=== PATIENT | female | born 1955 | race African-American/Black ===

== ENCOUNTER 2018-05-03 15:03 | Emergency (ER) | payer MEDICAID, OTHER ==
[~2018-05-03] VITALS: Ht 167.6 cm; Wt 83.9 kg
[2018-05-03 15:13] VITALS: BP 160/103
--- NOTE | 2018-05-03 15:41 | Emergency Room Report ---
History of Present Illness General Chief Complaint: Back Injury Source: Patient Present Illness HPI 63-year-old female presents to the emergency department complaining of localized 10 out of 10 in severity in the low back/sacral area since yesterday. Patient status post mechanical trip and fall backwards where she landed on her tailbone and someone also landed on top of her. Patient denies hitting her head she denies loss of consciousness she denies neck pain. Patient reports constant ache with intermittent sharp shooting pains. Patient states pain is exacerbated primarily with standing up straight and weightbearing. Patient also states that she's been having a difficult time finding a comfortable position. She states that she took Vicodin at 10 AM with no relief. She currently is utilizing a lidocaine patch. Denies recent spinal procedures or hx of cancer. Denies numbness tingling or loss of sensation or gross motor movements of the extremities, incontinence of bowel or bladder. Denies CP, Palpitations, LOC, AMS, dizziness, Changes in Vision, weakness or a sudden severe headache. Allergies: Coded Allergies: No Known Allergies (Unverified , 05/03/18) Patient History Past Medical History: see triage record Past Surgical History: none Pertinent Family History: none Reviewed Nursing Documentation: PMH: Agreed; PSxH: Agreed Nursing Documentation-PMH Past Medical History: No Stated History Review of Systems All Other Systems: negative except mentioned in HPI Physical Exam Vital Signs Date Time Temp Pulse Resp B/P (MAP) Pulse Ox O2 Delivery O2 Flow Rate FiO2 05/03/18 15:13 98.3 86 18 160/103 97 Room Air 98.2 Sp02 EP Interpretation: reviewed, normal General Appearance: no apparent distress, alert, GCS 15, non-toxic Head: normocephalic, atraumatic ENT: hearing grossly normal, normal voice Neck: full range of motion Respiratory: lungs clear, normal breath sounds, speaking full sentences Cardiovascular #1: regular rate, rhythm Musculoskeletal: back normal, gait/station normal, normal range of motion, tender - mild paraspinal sacral ttp, able to perform SLR bilaterally without exacerbation. Neurologic: alert, oriented x3, responsive, motor strength/tone normal, sensory intact, normal gait, speech normal, other, grossly normal Psychiatric: judgement/insight normal Skin: normal color, no rash, warm/dry, well hydrated Medical Decision Making PA Attestation Dr. De Jesus is my supervising Physician whom patient management has been discussed with. Diagnostic Impression: Primary Impression: Sacral contusion Qualified Codes: S30.0XXA - Contusion of lower back and pelvis, initial encounter Additional Impression: Acute low back pain Qualified Codes: M54.5 - Low back pain ER Course 63-year-old female presents to the emergency department complaining of localized 10 out of 10 in severity in the low back/sacral area since yesterday. Patient status post mechanical trip and fall backwards where she landed on her tailbone and someone also landed on top of her. Patient denies hitting her head she denies loss of consciousness she denies neck pain. Patient reports constant ache with intermittent sharp shooting pains. Patient states pain is exacerbated primarily with standing up straight and weightbearing. Patient also states that she's been having a difficult time finding a comfortable position. She states that she took Vicodin at 10 AM with no relief. She currently is utilizing a lidocaine patch. Denies recent spinal procedures or hx of cancer. Denies numbness tingling or loss of sensation or gross motor movements of the extremities, incontinence of bowel or bladder. Denies CP, Palpitations, LOC, AMS, dizziness, Changes in Vision, weakness or a sudden severe headache. Ddx considered but are not limited to Fracture, dislocation, contusion, Sprain/ Strain/Spasm, Epidural abscess, Neoplastic mets just to name a few. Vital signs: are WNL, pt. is afebrile H&PE are most consistent with musculoskeletal injury will perform imaging to r/ o fractures/dislocations. ORDERS: - X-ray Sacrum/ coccyx - negative for fx, Dislocation, or significant soft tissue injury, per preliminary read in ED, and signed by LAILA Gonzalez, my supervising physician has reviewed, and agrees with my interpretation. ED INTERVENTIONS: - Toradol Im -Soma PO DISCHARGE: At this time pt. is stable for d/c to home. Will provide printed patient care instructions, and any necessary prescriptions. Care plan and follow up instructions have been discussed with the patient prior to discharge. Other X-Ray Diagnostic Results Other X-Ray Diagnostic Results : X-Ray ordered: Xray Sacrum / coccyx # of Views/Limited Vs Complete: 3 View Indication: Pain EP Interpretation: Yes LAILA Xray: Interpretation reviewed, by supervising MD, and agrees with findings. Interpretation: no dislocation, no soft tissue swelling, no fractures Impression: No acute disease Electronically Signed by: Verito Gonzalez PA-C Last Vital Signs Date Time Temp Pulse Resp B/P (MAP) Pulse Ox O2 Delivery O2 Flow Rate FiO2 05/03/18 15:13 98.3 86 18 160/103 97 Room Air 98.2 Disposition: HOME, SELF-CARE Condition: Stable Scripts Ibuprofen* (MOTRIN*) 600 Mg Tablet 600 MG ORAL THREE TIMES A DAY, #20 TAB 0 Refills Prov: Verito Gonzalez 05/03/18 Lidocaine (Lidoderm) 1 Each Adh..patch 1 PATCH TOPIC DAILY, #30 PATCH 0 Refills Patch(es) may remain in place for up to 12 hours in any 24-hour period. Prov: Verito Gonzalez 05/03/18 Tramadol Hcl* (ULTRAM*) 50 Mg Tablet 50 MG ORAL Q6H PRN for For Pain, #15 TAB 0 Refills Prov: Verito Gonzalez 05/03/18 Patient Instructions: Back Pain, Adult Additional Instructions: Take medications as directed. Follow up with a Primary Care Provider in 3-5 days, even if your symptoms have resolved. --Please review list of primary care clinics, if you do not already have a primary care provider Return sooner to ED if new symptoms occur, or current symptoms become worse. Do not drink alcohol, drive, or operate heavy machinery while taking Tramadol as this may cause drowsiness. - Please note that this Emergency Department Report was dictated using [employer] technology software, occasionally this can lead to erroneous entry secondary to interpretation by the dictation equipment. Verito Gonzalez May 03, 2018 15:41
[2018-05-03] MEDS ORDERED: Ketorolac 60mg Inj IM ONE (15:45)
[2018-05-03] MEDS ORDERED: LIDODERM700 M1 TOPIC (17:24)
[2018-05-03] MEDS ORDERED: IBUPROFEN600 MG ORAL (17:24)
[2018-05-03] MEDS ORDERED: TRAMADOL HCL50 MG ORAL (17:24)
[2018-05-03 17:36] VITALS: BP 175/100
--- NOTE | 2018-05-04 11:04 | Diagnostic Imaging Report ---
Indication: Pain Technique: 3 views of the sacrum and coccyx Comparison: none Findings: Large calcified mass is seen in the pelvis to the left of midline. This obscures the left side of the sacrum on the frontal views. No definite acute fractures. No definite osteolytic or osteoblastic process. There are degenerative changes of the lumbosacral junction Impression: Somewhat limited exam, as described No acute bony trauma Calcified pelvic mass, appearance consistent with old degenerated uterine fibroids Degenerative changes of the lumbosacral junction
== END 2018-05-03 17:36 | disposition home or self-care (01) ==
LOC: EMR 15:54
DX: S30.0XXA Contusion of lower back and pelvis, initial encounter (principal); W01.0XXA Fall on same level from slipping, tripping and stumbling without subsequent striking against object, initial encounter; Y92.9 Unspecified place or not applicable
CPT/HCPCS: 72220; 96372; 99284

== ENCOUNTER 2019-11-28 17:10 | Emergency (ER) | payer OTHER ==
[~2019-11-28] VITALS: Ht 167.6 cm; Wt 68.0 kg
[~2019-11-28 17:10] MED LIST: IBUPROFEN600 MG ORAL; LIDODERM700 M1 TOPIC; TRAMADOL HCL50 MG ORAL
--- NOTE | 2019-11-28 17:40 | NUR ---
ED Nurse Note: Pt walked into ED w/ c/o SOB for past month. Pt states it has gotten worse over the past few days. Pt lungs bilateral clear to auscultation. No wheezing. Pt is 100% RA. Pt set up on monitor.
--- NOTE | 2019-11-28 17:45 | Emergency Room Report ---
History of Present Illness General Chief Complaint: Dyspnea/Respdistress Source: Patient Present Illness HPI 64-year-old female history of smoking for greater than 20 years presents with shortness of breath, wheezing x2 months gradually worsening, no fevers no chills , no cough no congestion, no known aggravating relieving factors severity is moderate, constant patient does not take albuterol at home she takes no medications she denies any chest pain Allergies: Coded Allergies: No Known Allergies (Unverified , 05/03/18) Patient History Past Medical History: see triage record Reviewed Nursing Documentation: PMH: Agreed; PSxH: Agreed Nursing Documentation-PMH Past Medical History: No Stated History Review of Systems All Other Systems: negative except mentioned in HPI Physical Exam Vital Signs Date Time Temp Pulse Resp B/P (MAP) Pulse Ox O2 Delivery O2 Flow Rate FiO2 11/28/19 17:27 97.9 111 20 147/85 (105) 100 Room Air Sp02 EP Interpretation: reviewed, normal General Appearance: well appearing, no apparent distress, alert Head: normocephalic, atraumatic Eyes: bilateral eye PERRL, bilateral eye EOMI ENT: uvula midline, moist mucus membranes Neck: supple, thyroid normal, supple/symm/no masses Respiratory: no respiratory distress, no retraction, no accessory muscle use, decreased breath sounds, wheezing - Mild Cardiovascular #1: normal peripheral pulses, regular rate, rhythm, no edema, no gallop, no murmur Gastrointestinal: non tender, soft, no guarding, no rebound Musculoskeletal: normal inspection Neurologic: alert, oriented x3 Psychiatric: mood/affect normal Skin: no rash, warm/dry Medical Decision Making Diagnostic Impression: Primary Impression: COPD exacerbation ER Course 64-year-old female presents with cough, congestion, shortness of breath x2 months, patient was a former smoker Patient improved significantly with breathing treatments, Patient was able to walk further today Counseled patient to follow-up with cardiology as well as pulmonology Disposition home with return precautions Laboratory Tests Test 11/28/19 17:37 White Blood Count 4.1 K/UL (4.8-10.8) L Red Blood Count 4.53 M/UL (4.20-5.40) Hemoglobin 12.1 G/DL (12.0-16.0) Hematocrit 37.3 % (37.0-47.0) Mean Corpuscular Volume 82 FL (80-99) Mean Corpuscular Hemoglobin 26.8 PG (27.0-31.0) L Mean Corpuscular Hemoglobin Concent 32.5 G/DL (32.0-36.0) Red Cell Distribution Width 11.1 % (11.6-14.8) L Platelet Count 188 K/UL (150-450) Mean Platelet Volume 6.4 FL (6.5-10.1) L Neutrophils (%) (Auto) 38.4 % (45.0-75.0) L Lymphocytes (%) (Auto) 47.4 % (20.0-45.0) H Monocytes (%) (Auto) 11.6 % (1.0-10.0) H Eosinophils (%) (Auto) 0.0 % (0.0-3.0) Basophils (%) (Auto) 2.6 % (0.0-2.0) H Prothrombin Time 10.0 SEC (9.30-11.50) Prothrombin Time INR 0.9 (0.9-1.1) PTT 27 SEC (23-33) Sodium Level 143 MMOL/L (136-145) Potassium Level 4.9 MMOL/L (3.5-5.1) Chloride Level 109 MMOL/L (98-107) H Carbon Dioxide Level 25 MMOL/L (21-32) Anion Gap 9 mmol/L (5-15) Blood Urea Nitrogen 34 mg/dL (7-18) H Creatinine 0.8 MG/DL (0.55-1.30) Estimate Glomerular Filtration Rate > 60 mL/min (>60) Glucose Level 96 MG/DL (74-106) Calcium Level 10.1 MG/DL (8.5-10.1) Total Bilirubin 0.2 MG/DL (0.2-1.0) Aspartate Amino Transferase (AST) 44 U/L (15-37) H Alanine Aminotransferase (ALT) 79 U/L (12-78) H Alkaline Phosphatase 168 U/L (46-116) H Troponin I 0.000 ng/mL (0.000-0.056) Pro-B-Type Natriuretic Peptide 47 pg/mL (0-125) Total Protein 8.8 G/DL (6.4-8.2) H Albumin 3.3 G/DL (3.4-5.0) L Globulin 5.5 g/dL Albumin/Globulin Ratio 0.6 (1.0-2.7) L Lipase 393 U/L (73-393) EKG Diagnostic Results EKG Time: 17:32 EP Interpretation: Sinus tachycardia, rate 104, QTc 415, no acute ST elevations , normal axis Rhythm Strip Diag. Results Rhythm Strip Time: 17:47 EP Interpretation: yes Rate: 99 Rhythm: NSR, no PVC's, no ectopy Chest X-Ray Diagnostic Results Chest X-Ray Diagnostic Results : Chest X-Ray Ordered: Yes # of Views/Limited/Complete: 1 View Indication: Shortness of Breath EP Interpretation: Yes Interpretation: no consolidation, no effusion, no pneumothorax, no acute cardiopulmonary disease Impression: No acute disease Electronically Signed by: Neville Yusuf MD Last Vital Signs Date Time Temp Pulse Resp B/P (MAP) Pulse Ox O2 Delivery O2 Flow Rate FiO2 11/28/19 17:27 97.9 111 20 147/85 (105) 100 Room Air Disposition: HOME, SELF-CARE Condition: Stable Scripts Prednisone* (PREDNISONE*) 50 Mg Tablet 50 MG ORAL DAILY, #4 TAB 0 Refills Prov: Neville Yusuf MD 11/28/19 Albuterol Sulfate* (ALBUTEROL SULFATE MDI*) 8.5 Gm Hfa.aer.ad 2 PUFF INH Q4H PRN for Shortness of Breath, #1 EA 0 Refills Prov: Neville Yusuf MD 11/28/19 Referrals: [facility] Patient Instructions: Chronic Obstructive Pulmonary Disease Exacerbation, Shortness of Breath, [id number] Additional Instructions: The patient was provided with discharge instructions, notified to follow-up with a primary care doctor and or specialist in the next 24-48 hours, and to return to the ED if they have worsening of their symptoms. Please note that this report is being documented using [employer] technology. This can lead to erroneous entry secondary to incorrect interpretation by the dictating instrument. FOLLOW-UP WITH PULMONOLOGY AND CARDIOLOGY Neville Yusuf MD Nov 28, 2019 17:45
[2019-11-28] MEDS: Ipratropium 0.02% Inh Soln 2.5ml UD HHN SCH (17:59)
[2019-11-28] MEDS: Albuterol ud Inhalation HHN SCH (17:59)
[2019-11-28 18:02] VITALS: BP 132/97
[2019-11-28 18:02] LABS: BASOPHILS % (AUTO) 2.6 % (0.0-2.0); HEMATOCRIT 37.3 % (37.0-47.0); HEMOGLOBIN 12.1 G/DL (12.0-16.0); LYMPHOCYTES % (AUTO) 47.4 % (20.0-45.0); MEAN CORPUSCULAR VOLUME 82 FL (80-99); MONOCYTES % (AUTO) 11.6 % (1.0-10.0); NEUTROPHILS % (AUTO) 38.4 % (45.0-75.0); PLATELET COUNT 188 K/UL (150-450); RED BLOOD COUNT 4.53 M/UL (4.20-5.40); RED CELL DISTRIBUTION WIDTH 11.1 % (11.6-14.8); WHITE BLOOD COUNT 4.1 K/UL (4.8-10.8)
[2019-11-28 18:19] LABS: ANION GAP 9 mmol/L (5-15); BLOOD UREA NITROGEN 34 mg/dL (7-18); CALCIUM 10.1 MG/DL (8.5-10.1); CARBON DIOXIDE 25 MMOL/L (21-32); CHLORIDE 109 MMOL/L (98-107); CREATININE 0.8 MG/DL (0.55-1.30); POTASSIUM 4.9 MMOL/L (3.5-5.1); SODIUM 143 MMOL/L (136-145)
[2019-11-28 18:29] LABS: INR 0.9 (0.9-1.1)
[2019-11-28 18:30] LABS: ALANINE AMINOTRANSFERASE 79 U/L (12-78); ALBUMIN 3.3 G/DL (3.4-5.0); ALBUMIN/GLOBULIN RATIO 0.6 (1.0-2.7); ALKALINE PHOSPHATASE 168 U/L (46-116); ASPARTATE AMINO TRANSFERASE 44 U/L (15-37); BILIRUBIN,TOTAL 0.2 MG/DL (0.2-1.0)
[2019-11-28] MEDS ORDERED: ALBUTEROL SULF8.5 GM INH (19:18)
[2019-11-28] MEDS ORDERED: PREDNISONE50 MG ORAL (19:18)
[2019-11-28 19:25] VITALS: BP 132/97
--- NOTE | 2019-11-28 19:25 | NUR ---
ER DISCHARGE NOTE: Patient is cleared to be discharged per ERMD, pt is aox4, on room air, with stable vital signs. pt was given dc and prescription instructions, pt was able to verbalize understanding, pt id band and iv site removed without complications. pt is able to ambulate with steady gait. pt took all belongings.
--- NOTE | 2019-11-29 10:46 | Diagnostic Imaging Report ---
Indication: Shortness of breath Technique: One view of the chest Comparison: none Findings: Lungs and pleural space are clear. Heart size is normal. Impression: No acute process
== END 2019-11-28 19:25 | disposition home or self-care (01) ==
LOC: EMR 18:11
DX: J44.1 Chronic obstructive pulmonary disease with (acute) exacerbation (principal); Z87.891 Personal history of nicotine dependence
CPT/HCPCS: 36415; 71045; 80053; 83690; 83880; 84484; 85025; 85610; 85730; 93005; J7030; J8540; Z7502; 99284